=== PATIENT | female | born 1945 | race Caucasian/White ===

== ENCOUNTER 2019-08-18 08:58 | Emergency (ER) | payer OTHER, SELFPAY ==
[2019-08-18 09:11] VITALS: BP 174/97; PULSE 93; RESP 19; TEMP 36.4; O2SAT 100; BMI 25.7
[2019-08-18 09:30] VITALS: BP 175/99; PULSE 84; RESP 16; O2SAT 100
--- NOTE | 2019-08-18 09:32 | DI.RAD.S_ITS ---
PROCEDURE: XR CHEST 1V INDICATIONS: Chest pain TECHNIQUE: One view of the chest was acquired. COMPARISON: None. FINDINGS: Surgical changes and devices: None. Lungs and pleura: Lungs are clear. No pleural effusions or pneumothorax. Mediastinum: Mediastinal contours appear normal. Heart size is normal. Bones and chest wall: No suspicious bony lesions. Overlying soft tissues appear unremarkable. IMPRESSION: Normal for age, source of current chest pain symptoms is not seen. Dictated by: Emilio Gregory M.D. on 08/18/2019 at 10:34 Approved by: Emilio Gregory M.D. on 08/18/2019 at 10:35
[2019-08-18 09:44] LABS: Add Manual Diff / Slide Review NO; Basophils Absolute Auto 0 /uL (0-100); Basophils Percent Auto 0.6 % (0-2); Eosinophils Absolute Auto 0 /uL (0-450); Eosinophils Percent Auto 0.2 % (2-4); Hematocrit 41.3 % (36-46); Hemoglobin 14.3 g/dL (12.0-16.0); Lymphocytes Absolute Auto 1600 /uL (1100-4500); Lymphocytes Percent Auto 25.9 % (25-40); Mean Corpuscular HGB Conc 34.8 % (30-36); Mean Corpuscular Hemoglobin 31.3 PG (26-34); Mean Corpuscular Volume 89.9 fL (80-100); Monocytes Absolute Auto 300 /uL (0-900); Monocytes Percent Auto 4.6 % (3-14); Neutrophils Absolute Auto 4300 /uL (1500-7000); Neutrophils Percent Auto 68.7 % (50-75); Platelet Count 288 X10^3/uL (150-400); Red Blood Cell Count 4.59 X10^6/uL (4.0-5.2); Red Cell Distribution Width 13.3 % (11.6-14.8); White Blood Cell Count 6.3 X10^3/uL (4.5-11.0)
--- NOTE | 2019-08-18 09:56 | ED_ITS ---
HPI - Chest Pain General Chief Complaint: Chest Pain Stated Complaint: chest tightness Time Seen by Provider: 08/18/19 09:36 Source: patient Mode of arrival: Ambulatory Limitations: no limitations History of Present Illness HPI narrative: Patient comes emergency department complaining of chest tightness for the past several days. She states that she has been anxious for a long time, secondary to her daughter traveling to [place] and the [facility] for work. The patient states that every time her daughter's overseas, she 1st for her daughter safety and does not sleep at night. She states that she does not have a history of any cardiac issues. She states her blood pressure does go high when she is anxious, but comes back down to normal when her anxiety dies down. She states she has been checked many times at Dr. Salgado's office for this, and has not as yet been diagnosed with hypertension. Patient denies any recent illnesses. She states that her chest tightness is not associated with any shortness of breath, lightheadedness, or diaphoresis. She has had slight nausea this morning. Patient states she did not really sleep much last night. She states that once her anxiety gets going, it is hard to break the cycle. No other complaints at this time. No decreased exercise tolerance. Related Data Home Medications Medication Instructions Recorded Confirmed multivitamin 1 tab PO DAILY #0 05/02/11 08/18/19 acetaminophen [Tylenol Extra 500 mg PO PRN PRN 08/18/19 08/18/19 Strength] cholecalciferol (vitamin D3) 2,000 unit PO DAILY 08/18/19 08/18/19 [Vitamin D3] Previous Rx's Medication Instructions Recorded lorazepam [Ativan] 1 mg PO TID PRN #14 tab 08/18/19 Allergies Allergy/AdvReac Type Severity Reaction Status Date / Time prochlorperazine Allergy Mild Verified 08/18/19 09:37 [PROCHLORPERAZINE] Review of Systems Constitutional Constitutional: Denies chills, Denies fatigue, Denies fever(s), Denies frequent falls, Denies lethargy and Denies weakness Eyes Eyes: Denies change in vision, Denies eye discharge, Denies irritation and Denies loss of vision ENT Ears, Nose, Mouth, and Throat: Denies change in voice, Denies dizziness, Denies neck pain, Denies sore throat and Denies throat swelling Cardiovascular Cardiovascular: Reports chest pain, Denies irregular heart rhythm, Denies lightheadedness, Denies palpitations, Denies dyspnea, Denies dyspnea on exertion and Denies orthopnea Respiratory Respiratory: Denies cough, Denies dyspnea, Denies dyspnea on exertion and Denies wheezing Gastrointestinal Gastrointestinal: Denies abdominal pain, Denies change in bowel habits, Denies diarrhea, Denies nausea and Denies vomiting Genitourinary Genitourinary: Denies hematuria, Denies flank pain, Denies urinary incontinence and Denies urinary urgency Musculoskeletal Musculoskeletal: Denies back pain, Denies muscle weakness, Denies neck pain, Denies numbness and Denies tingling Integumentary/Breasts Skin/Breast: Denies pruritus, Denies erythema, Denies rash and Denies wounds Neurologic Neurologic: Denies behavioral changes, Denies confusion, Denies dizziness, Denie s frequent falls, Denies loss of vision, Denies numbness, Denies tingling and Denies weakness Psychiatric Psychiatric: Denies anxiety, Denies behavioral changes, Denies confusion, Denies depression, Denies homicidal ideation and Denies suicidal ideation Endocrine Endocrine: Denies fatigue, Denies flushing and Denies palpitations Hematologic/Lymphatic Hematologic/Lymphatic: Denies easy bruising Allergic/Immunologic Allergic/Immunologic: Denies urticaria, Denies throat swelling and Denies wheezing Patient History Medical History Anxiety (Acute) Hyperlipidemia (Chronic 04/02/13) Impaired fasting glucose (01/17/16) Social History Smoking Status: Never smoker alcohol intake frequency: a few times a month Alcohol type: wine Substance Use Type: does not use Exam Initial Vital Signs Initial Vital Signs: Vital Signs Temperature 97.6 F 08/18/19 09:11 Pulse Rate 93 H 08/18/19 09:11 Respiratory Rate 19 08/18/19 09:11 Blood Pressure 174/97 H 08/18/19 09:11 Pulse Oximetry 100 08/18/19 09:11 Const General: cooperative and well developed Nutritional Appearance: well nourished Orientation: alert, awake, oriented x3 and not confused HENOR Head: normocephalic and atraumatic Ears: external ears normal Nose: external nose normal and No nasal discharge Face and sinus: face symmetric and No dry mucous membranes Mouth: oral mucosae normal and moist mucous membranes Teeth and gingiva: dentition normal Eyes General: appearance normal, both eyes and all related structures Eyelids: eyelids normal Conjunctivae: conjunctivae normal Sclera: sclerae normal Pupils: PERRL EOM: EOM intact bilaterally Neck Neck: normal visual inspection, trachea midline, No lymphadenopathy, No midline deformity and No JVD Lymphatic: No lymphedema Chest Chest: normal inspection of the chest Resp Effort & Inspection: normal respiratory effort, able to speak in complete sentences, no respiratory distress and no use of accessory muscles Auscultation: clear to auscultation bilaterally, no rales, no rhonchi and no wheezes Cardio Rate: regular rate Rhythm: regular rhythm Heart Sounds: no click, no gallops, no murmurs and no rubs Pulses: normal peripheral pulses GI Inspection: non-distended Palpation: soft, no hepatosplenomegaly, No guarding, No pulsatile mass and No tender Back/Spine/Pelvis Back: No CVA tenderness Cervical Spine: cervical ROM normal and No pain with cervical ROM Thoracic/Lumbar Spine: thoracic and lumbar spine normal to inspection Skin General: no rashes or lesions noted, No jaundice and No petechiae Neuro General: alert, oriented x3, gait normal and no focal motor deficits Speech: speech normal Extrem General: full ROM, no clubbing, cyanosis or edema, no pedal edema and no calf tenderness Psych Appearance: well kempt Mental Status: mental status grossly normal Attitude: cooperative Thought Content: normal and suicidality Judgment: judgment good Course Course Course Narrative: Patient was treated symptomatically with Ativan and worked up with EKG and cardiac lab panel. Patient was found to be feeling much better after treatment with Ativan, and stated that her chest tightness is gone and her anxiety level was ?way down?. Her workup was unremarkable. Given that the patient had been having symptoms for days on end, without change in the nature or intensity of symptoms, I did not feel that a repeat troponin was indicated at this time. I have advised the patient that I will give her a prescription for Ativan for home. However, is very important that she follows up with the primary care physician to determine about her long-term plan for her anxiety. Patient and are agreeable, and can drive patient home. Orders Ordered: Discontinued Medications Aspirin (Aspirin Chew) 324 mg PO NOW ONE Stop: 08/18/19 09:33 Last Admin: 08/18/19 10:04 Dose: Not Given Documented by: REYNALDO Sodium Chloride (Normal Saline 0.9%) 1,000 mls @ 150 mls/hr IV CONT BLANKA Lorazepam (Ativan) 1 mg IV NOW ONE Stop: 08/18/19 09:51 Last Admin: 08/18/19 09:58 Dose: 1 mg Documented by: REYNALDO Vital Signs Vital signs: Vital Signs - 8 hr 08/18/19 09:11 Temperature 97.6 F Pulse Rate 93 H Respiratory Rate 19 Blood Pressure 174/97 H Pulse Oximetry 100 MDM - Chest Pain Medical Records Data Attestation: I reviewed the patient's medical records. Lab Data Attestation: I reviewed the patient's lab results. Result diagrams: 08/18/19 09:22 08/18/19 09:22 Labs: Lab Results 08/18/19 08/18/19 Range/Units 09:22 09:22 WBC 6.3 (4.5-11.0) X10^3/uL RBC 4.59 (4.0-5.2) X10^6/uL Hgb 14.3 (12.0-16.0) g/dL Hct 41.3 (36-46) % MCV 89.9 (80-100) fL MCH 31.3 (26-34) PG MCHC 34.8 (30-36) % RDW 13.3 (11.6-14.8) % Plt Count 288 (150-400) X10^3/uL Neut % (Auto) 68.7 (50-75) % Lymph % (Auto) 25.9 (25-40) % [place] % (Auto) 4.6 (3-14) % Eos % (Auto) 0.2 L (2-4) % Baso % (Auto) 0.6 (0-2) % Neut # (Auto) 4300 (9033-0438) /uL Lymph # (Auto) 1600 (7229-1169) /uL [place] # (Auto) 300 (0-900) /uL Eos # (Auto) 0 (0-450) /uL Baso # (Auto) 0 (0-100) /uL Sodium 133 L (137-145) mmol/L Potassium 4.2 (3.4-5.1) mmol/L Chloride 100 (98-107) mmol/L Carbon Dioxide 25 (22-32) mmol/L BUN 13 (7-17) mg/dL Creatinine 0.80 (0.52-1.04) mg/dL Estimated GFR > 60.0 (>60) mL/min BUN/Creatinine Ratio 16.3 (6-22) Glucose 115 H (80-110) mg/dL Calcium 10.1 (8.4-10.2) mg/dL Total Bilirubin 1.1 (0.2-1.3) mg/dL AST 41 H (14-36) IU/L ALT 20 (<35) IU/L Alkaline Phosphatase 78 (38-126) U/L Total Creatine Kinase 64 (30-135) U/L CK-MB (CK-2) TNP CK-MB (CK-2) Rel Index TNP Troponin I < 0.012 (0.01-0.034) ng/mL Total Protein 7.5 (6.3-8.2) g/dL Albumin 4.5 (3.5-5.0) g/dL Globulin 3.0 (1.7-4.1) g/dL Albumin/Globulin Ratio 1.5 (1.0-2.8) Lipase 108 (23-300) U/L Imaging Data Chest x-ray: Radiologist's impression: PROCEDURE: XR CHEST 1V INDICATIONS: Chest pain TECHNIQUE: One view of the chest was acquired. COMPARISON: None. FINDINGS: Surgical changes and devices: None. Lungs and pleura: Lungs are clear. No pleural effusions or pneumothorax. Mediastinum: Mediastinal contours appear normal. Heart size is normal. Bones and chest wall: No suspicious bony lesions. Overlying soft tissues appear unremarkable. IMPRESSION: Normal for age, source of current chest pain symptoms is not seen. Dictated by: Emilio Gregory M.D. on 08/18/2019 at 10:34 Approved by: Emilio Gregory M.D. on 08/18/2019 at 10:35 ECG Data Attestation: I personally reviewed and interpreted this ECG as follows: (See below) Interpretation: Twelve lead EKG performed August 18, 2019 at 9:11 a.m., as follows: Regular ventricular rhythm with a rate of 90 beats per min MO interval is 128 millisecond QRS duration 102 millisecond QTC interval 408 millisecond No ectopy No significant ST T wave changes Interpretation: Normal sinus rhythm; no signs of acute ischemia; normal EKG as interpreted by ED. Discharge Plan Departure Patient Disposition: Home Clinical Impression: Anxiety Chest pain Qualifiers: Chest pain type: unspecified Qualified Code(s): R07.9 - Chest pain, unspecified Discharge Date/Time: 08/18/19 11:13 Instructions: DI for Anxiety -- Adult Activity Restrictions/Additional Instructions: Your labs all look good, does your EKG there is no evidence a heart attack or other emergent condition. Please follow up with your doctor, or the doctors l isted below, to determine the best long-term treatment of your anxiety. Prescriptions: New lorazepam [Ativan] 1 mg tablet 1 mg PO TID PRN (Reason: anxiety) Qty: 14 RF: 0 No Action multivitamin Tablet 1 tab PO DAILY Qty: 0 RF: 0 acetaminophen [Tylenol Extra Strength] 500 mg Tablet 500 mg PO PRN PRN (Reason: PAIN) RF: 0 cholecalciferol (vitamin D3) [Vitamin D3] 2,000 unit Tablet 2,000 unit PO DAILY RF: 0 Referrals: Luis Salgado MD [Primary Care Provider] - Kala Diaz MD [Physician] - Eli Fernandez MD [Physician] - Dottie Andrew DO [Physician] -
[2019-08-18 09:58] LABS: Alanine Aminotransferase 20 IU/L (<35); Albumin 4.5 g/dL (3.5-5.0); Albumin Globulin Ratio 1.5 (1.0-2.8); Alkaline Phosphatase 78 U/L (38-126); Aspartate Aminotransferase 41 IU/L (14-36); BUN Creatinine Ratio 16.3 (6-22); Bilirubin Total 1.1 mg/dL (0.2-1.3); Blood Urea Nitrogen 13 mg/dL (7-17); Calcium 10.1 mg/dL (8.4-10.2); Carbon Dioxide 25 mmol/L (22-32); Chloride 100 mmol/L (98-107); Creatine Kinase 64 U/L (30-135); Estimated Glomerular Filt Rate > 60.0 mL/min (>60); Glucose 115 mg/dL (80-110); HEMOLYSIS 99 (0-50); Lipase 108 U/L (23-300); Potassium 4.2 mmol/L (3.4-5.1); Sodium 133 mmol/L (137-145); Total Protein 7.5 g/dL (6.3-8.2)
[2019-08-18] MEDS: LORazepam 2 MG/ML INJ 1 MG IV (09:58)
[2019-08-18 10:08] LABS: Troponin I < 0.012 ng/mL (0.01-0.034)
[2019-08-18 11:13] VITALS: BP 146/65; PULSE 86; RESP 16; O2SAT 100
== END 2019-08-18 11:13 | disposition home or self-care (01) ==
PROVIDERS: Emergency Provider Emergency Medicine; Family Provider Family Medicine; PCP Family Medicine
DX: F41.9 Anxiety disorder, unspecified (principal); R07.9 Chest pain, unspecified; E78.2 Mixed hyperlipidemia
CPT/HCPCS: 36415; 71045; 80053; 82550; 83690; 84484; 85025; 93005; 96374; 99282; 99285; J2060

== ENCOUNTER → 2020-10-27 16:59 | Outpatient (CLI) | payer MEDICARE, SELFPAY ==
[2020-10-27] MEDS: COVID-19 VACC #1, MRNA(MOD) 100 MCG/0.5 ML VIAL IM (17:05)
== END ==
PROVIDERS: Family Provider Family Medicine; PCP Family Medicine; Visit Provider Internal Medicine
DX: Z23 Encounter for immunization (principal)
CPT/HCPCS: 0011A; 91301

== ENCOUNTER → 2020-11-25 08:47 | Outpatient (CLI) | payer MEDICARE, SELFPAY ==
[2020-11-25] MEDS: COVID-19 VACC #2, MRNA(MOD) 100 MCG/0.5 ML VIAL IM (08:53)
== END ==
PROVIDERS: Family Provider Family Medicine; PCP Family Medicine; Visit Provider Internal Medicine
DX: Z23 Encounter for immunization (principal)
CPT/HCPCS: 0012A; 91301

== ENCOUNTER 2022-09-15 08:04 | Emergency (ER) | payer OTHER, SELFPAY ==
[2022-09-15 08:05] VITALS: BP 171/86; PULSE 95; RESP 22; TEMP 36.6; O2SAT 100
--- NOTE | 2022-09-15 08:32 | ED.ANXIETY ---
HPI - Anxiety General Chief Complaint: Anxiety Stated Complaint: Panic attack per patient Time Seen by Provider: 09/15/22 08:31 Source: patient Mode of arrival: Ambulatory Limitations: no limitations History of Present Illness HPI narrative: This is a 77-year-old female who comes with complaint of panic attack. Patient states she is been having them intermittently for some time, she states it has been happening with a little bit increasing frequency because she has a neighbor that maybe moving back into the house who they have had very negative interactions with in the past. Patient states she has a bottle lorazepam they were 1 mg tablets that she would quarter that she received and 2019. She will take a 0.25 mg of this and it is usually helpful. She states sometimes just looking at the bottle is helpful. She states she will typically wake up at about 130 in the morning, she will feel very anxious she will have this sense of doom that something bad is going to happen, she feels a little bit tight in her chest nauseated and sometimes symptoms will pass on their own and sometimes she will take the lorazepam. She has been told by multiple people to follow up with a counselor, she states she has multiple names. She is talked to Dr. Salgado about this her primary care but had not followed up to get a refill. She is not on any daily medications. She denies syncope, no diaphoresis, no shortness of breath, she has nausea but no vomiting with episodes happen. She denies diarrhea constipation, no dysuria urgency or frequency. No swelling in her extremities. She was seen here in 2019 had cardiac enzymes, EKG which were negative she has not followed up for any additional cardiac testing. She denies major surgeries. She is reported allergy to prochlorperazine. No tobacco, occasional alcohol, no illicit. She is accompanied by her today. Related Data Home Medications Medication Instructions Recorded Confirmed multivitamin 1 tab PO DAILY ##0 05/02/11 08/18/19 acetaminophen 500 mg tablet 500 mg PO PRN PRN PAIN 08/18/19 08/18/19 (Tylenol Extra Strength) cholecalciferol (vitamin D3) 50 2,000 unit PO DAILY 08/18/19 08/18/19 mcg (2,000 unit) tablet (Vitamin D3) Previous Rx's Medication Instructions Recorded lorazepam 1 mg tablet (Ativan) 1 mg PO TID PRN anxiety #14 tabs 08/18/19 lorazepam 1 mg tablet 0.25 mg PO DAILY PRN anxiety #5 09/15/22 tabs Allergies Allergy/AdvReac Type Severity Reaction Status Date / Time prochlorperazine Allergy Mild Verified 08/18/19 09:37 [PROCHLORPERAZINE] Review of Systems Review of Systems ROS Unobtainable: All systems reviewed & are unremarkable except as noted in HPI and below Patient History Medical History (Updated 09/15/22 @ 08:50 by Lizette Grimaldo DO) Anxiety Hyperlipidemia (04/02/13) Impaired fasting glucose (01/17/16) Surgical History History of third molar tooth extraction Social History Smoking Status: Never smoker Smoking Status: Never smoker alcohol intake frequency: a few times a month Alcohol type: wine Substance Use Type: does not use Exam Narrative Exam Narrative: GENERAL: Alert and oriented x three, female in mild distress HEENT: Head normocephalic, atraumatic, EOMI, pupils reactive, face symmetric, moist mucous membranes NECK: Supple, full range of motion CARDIOVASCULAR: Regular rate and rhythm without murmurs, rubs or gallops. RESPIRATORY: Breath sounds equal bilaterally, no wheezes rales or rhonchi. ABDOMEN: Soft, nontender. Normoactive bowel sounds all 4 quadrants. No guarding or rebound, rigidity, no mass : No CVA tenderness EXTREMITIES: Normal range of motion, no clubbing or edema. Neurovascularly intact NEUROLOGICAL: Cranial nerves II through XII grossly intact. Moving all extremities SKIN: Warm, dry, no petechiae, no rashes or lesions. PSYCH: anxiety, no thoughts of self harm. Initial Vital Signs Initial Vital Signs: Vital Signs Temperature 98 F 09/15/22 08:05 Pulse Rate 95 H 09/15/22 08:05 Respiratory Rate 22 09/15/22 08:05 Blood Pressure 171/86 H 09/15/22 08:05 Pulse Oximetry 100 09/15/22 08:05 Oxygen Delivery Method 09/15/22 08:05 Course Orders Ordered: Discontinued Medications Lorazepam (Lorazepam 0.5 Mg Tablet) 0.25 mg PO NOW ONE Stop: 09/15/22 08:44 Last Admin: 09/15/22 09:02 Dose: 0.25 mg Documented By: CATALINO Vital Signs Vital signs: Vital Signs - 8 hr 09/15/22 08:05 Temperature 98 F Pulse Rate 95 H Respiratory Rate 22 Blood Pressure 171/86 H Pulse Oximetry 100 Oxygen Delivery Method Room Air MDM - Anxiety MDM Narrative Medical decision making narrative: This is a 77-year-old female with no known medical issues reported, patient has sounds like possible panic attack but I feel patient should have cardiac workup with labs, EKG and chest x-ray but patient very politely defers. She did bring her bottle of medication with her states it took about 2 years to go through 14 tablets. Will give a dose of 0.25 mg lorazepam, prescription for 5 tablets and discussed with patient she needs to follow up with her primary care for further workup and evaluation as well as counselor if no other causes are found. Patient and I reviewed return precautions. Discharge Plan Departure Patient Disposition: Home Clinical Impression: Anxiety Activity Restrictions/Additional Instructions: Follow up with Dr. Salgado for recheck and workup for your anxious feelings. I would recommend you have cardiac workup today to rule out any other causes of your anxious symptoms. You can take a quarter tablet of lorazepam once daily as needed. This medication can make you sleepy do not drive, performed hazardous activities or make any major decisions while taking. Prescription sent Please return for new or worsening symptoms, new chest pain, shortness of breath, passing out, sweatiness, persistent vomiting, new swelling in her extremities or other new or concerning changes. Prescriptions: New lorazepam 1 mg tablet 0.25 mg PO DAILY PRN (Reason: anxiety) Qty: 5 0RF No Action multivitamin Tablet 1 tab PO DAILY Qty: 0 acetaminophen [Tylenol Extra Strength] 500 mg Tablet 500 mg PO PRN PRN (Reason: PAIN) cholecalciferol (vitamin D3) [Vitamin D3] 2,000 unit Tablet 2,000 unit PO DAILY lorazepam [Ativan] 1 mg tablet 1 mg PO TID PRN (Reason: anxiety) Qty: 14 0RF Referrals: Luis Salgado MD [Primary Care Provider] - Visit Report Forms: Patient Portal/API
[2022-09-15] MEDS: LORazepam 0.5 MG TABLET 0.25 MG PO (09:02)
[2022-09-15 09:12] VITALS: BP 181/94; PULSE 85; RESP 18; TEMP 37.6; O2SAT 99
== END 2022-09-15 09:12 | disposition home or self-care (01) ==
PROVIDERS: Emergency Provider Emergency Medicine; Family Provider Family Medicine; PCP Family Medicine
DX: F41.9 Anxiety disorder, unspecified (principal)
CPT/HCPCS: 99283

== ENCOUNTER 2023-10-19 03:32 | Emergency (ER) | payer OTHER, SELFPAY ==
[2023-10-19 03:44] VITALS: BP 166/81; PULSE 104; O2SAT 98
[2023-10-19 03:48] VITALS: BP 166/81; PULSE 105; RESP 18; TEMP 37.3; O2SAT 97; BMI 23.9
--- NOTE | 2023-10-19 03:48 | DI.RAD.S_ITS ---
PROCEDURE: XR CHEST 1V INDICATIONS: chest pain/anxiety TECHNIQUE: One view of the chest was acquired. COMPARISON: [facility], CR, XR CHEST 1V, 08/18/2019, 9:55. FINDINGS: Surgical changes and devices: None. Lungs and pleura: Lungs are clear. No pleural effusions or pneumothorax. Mediastinum: Mediastinal contours appear normal. Heart size is normal. Bones and chest wall: No suspicious bony lesions. Overlying soft tissues appear unremarkable. IMPRESSION: No acute cardiopulmonary abnormality is seen. This report is concordant with the overnight preliminary interpretation. Dictated by: Manjinder Johnson M.D. on 10/19/2023 at 8:04 Approved by: Manjinder Johnson M.D. on 10/19/2023 at 8:05
--- NOTE | 2023-10-19 03:55 | ED.ANXIETY ---
HPI - Anxiety General Chief Complaint: Anxiety Stated Complaint: shakey, feels bad not sure what is going on Time Seen by Provider: 10/19/23 03:33 History of Present Illness HPI narrative: 78-year-old female presents by private vehicle from home for shakiness, malaise, anxiety. Patient has had ongoing issues with anxiety for the last several weeks. She saw her primary care physician earlier this week, who prescribed Celexa and a very small dose of as needed Ativan. Patient states she took a single pill of the Celexa, but ?it made me very sick? and she does not want to take this again. Patient states that she feels shaky, she can not sleep, and generally unwell. He reports single episode of central chest pain earlier this morning, which subsequently resolved, and she is currently pain-free. Related Data Home Medications Medication Instructions Recorded Confirmed multivitamin 1 tab PO DAILY ##0 05/02/11 10/17/23 acetaminophen 500 mg tablet 500 mg PO PRN PRN PAIN 08/18/19 10/17/23 (Tylenol Extra Strength) cholecalciferol (vitamin D3) 50 2,000 unit PO DAILY 08/18/19 10/17/23 mcg (2,000 unit) tablet (Vitamin D3) Previous Rx's Medication Instructions Recorded citalopram 10 mg tablet (Celexa) 5 mg (1/2 x 10 mg) PO DAILY #15 10/17/23 tabs lorazepam 0.5 mg tablet 0.25 mg (1/2 x 0.5 mg) PO DAILY 10/17/23 PRN anxiety #10 tabs Allergies Allergy/AdvReac Type Severity Reaction Status Date / Time prochlorperazine Allergy Mild Verified 10/17/23 09:28 [PROCHLORPERAZINE] Review of Systems Review of Systems Narrative: See HPI Patient History Medical History Impaired fasting glucose (01/17/16) Hyperlipidemia (04/02/13) Anxiety Surgical History History of third molar tooth extraction Social History Smoking Status: Never smoker Smoking Status: Never smoker alcohol intake frequency: a few times a month Alcohol type: wine Substance Use Type: does not use Exam Initial Vital Signs Initial Vital Signs: Vital Signs Pulse Rate 104 H 10/19/23 03:44 Blood Pressure 166/81 H 10/19/23 03:44 Pulse Oximetry 98 10/19/23 03:44 Const: Awake, alert, anxious, tremulous Cardiac: regular rate, regular rhythm RESP: unlabored, clear bilaterally, no wheezing GI: Atraumatic, soft, nontender, nondistended, no rebound, no guarding MSK: Atraumatic, full range of motion, pulses equal Skin: Warm, Dry, intact, no rashes Neuro: AO x3, CN II-XII grossly intact, moves all extremities Psych: Anxious affect, not suicidal, not homicidal Course Orders Ordered: Discontinued Medications Droperidol (Droperidol 5 Mg/2 Ml Vial) 2.5 mg IV NOW ONE Stop: 10/19/23 03:48 Last Admin: 10/19/23 03:56 Dose: 2.5 mg Documented By: EDOUARD Sodium Chloride (Normal Saline 0.9%) 1,000 mls @ 1,000 mls/hr IV BOLUS ONE Stop: 10/19/23 04:46 Last Infusion: 10/19/23 04:43 Dose: Infused Documented By: Admin: 10/19/23 03:56 Dose: 1,000 mls/hr Documented By: EDOUARD Lorazepam (Lorazepam 0.5 Mg/0.25 Ml Syringe) 1 mg IV NOW ONE Stop: 10/19/23 05:06 Last Admin: 10/19/23 05:35 Dose: Not Given Documented By: LISA Lorazepam (Lorazepam 0.5 Mg/0.25 Ml Syringe) 1 mg IV NOW ONE Stop: 10/19/23 05:10 Last Admin: 10/19/23 05:22 Dose: Not Given Documented By: ELZA Lorazepam (Lorazepam 2 Mg/Ml Inj) 1 mg IV NOW ONE Stop: 10/19/23 05:16 Last Admin: 10/19/23 05:24 Dose: 1 mg Documented By: LISA Vital Signs Vital signs: Vital Signs - 8 hr 10/19/23 03:44 10/19/23 03:44 10/19/23 03:48 Temperature 99.1 F Pulse Rate 104 H 105 H Respiratory Rate 18 Blood Pressure 166/81 H 166/81 H Pulse Oximetry 98 97 Oxygen Delivery Method Room Air 10/19/23 04:00 10/19/23 04:30 10/19/23 04:30 Temperature Pulse Rate 89 75 Respiratory Rate 16 22 Blood Pressure 163/75 H Pulse Oximetry 97 98 Oxygen Delivery Method 10/19/23 05:00 10/19/23 05:00 Temperature Pulse Rate 75 Respiratory Rate 18 Blood Pressure 177/84 H Pulse Oximetry 99 Oxygen Delivery Method MDM - Anxiety Differential Diagnosis Differential diagnosis: Likely hyperventilation, panic disorder and acute anxiety Lab Data 10/19/23 03:54 10/19/23 03:54 Labs: Lab Results 10/19/23 10/19/23 Range/Units 03:54 04:55 WBC 5.6 (4.5-11.0) X10^3/uL RBC 4.36 (4.0-5.2) X10^6/uL Hgb 13.8 (12.0-16.0) g/dL Hct 39.6 (36-46) % MCV 90.9 (80-100) fL MCH 31.8 (26-34) PG MCHC 34.9 (30-36) % RDW 13.3 (11.6-14.8) % Plt Count 292 (150-400) X10^3/uL Neut % (Auto) 54.0 (50-75) % Lymph % (Auto) 37.2 (25-40) % [place] % (Auto) 7.1 (3-14) % Eos % (Auto) 1.0 L (2-4) % Baso % (Auto) 0.7 (0-2) % Neut # (Auto) 3000 (0223-2348) /uL Lymph # (Auto) 2100 (3127-8943) /uL [place] # (Auto) 400 (0-900) /uL Eos # (Auto) 100 (0-450) /uL Baso # (Auto) 0 (0-100) /uL Sodium 134 L (137-145) mmol/L Potassium 3.8 (3.4-5.1) mmol/L Chloride 102 (98-107) mmol/L Carbon Dioxide 24 (22-32) mmol/L BUN 14 (7-17) mg/dL Creatinine 0.87 (0.52-1.04) mg/dL Estimated GFR > 60 (>60) mL/min BUN/Creatinine Ratio 16.1 (6-22) Glucose 116 H (80-110) mg/dL Calcium 9.6 (8.4-10.2) mg/dL Total Bilirubin 0.9 (0.2-1.3) mg/dL AST 20 (14-36) IU/L ALT 16 (<35) IU/L Alkaline Phosphatase 78 (38-126) U/L Total Creatine Kinase 56 (30-135) U/L Troponin I < 0.012 (0.01-0.034) ng/mL Total Protein 7.1 (6.3-8.2) g/dL Albumin 4.2 (3.5-5.0) g/dL Globulin 2.9 (1.7-4.1) g/dL Albumin/Globulin Ratio 1.4 (1.0-2.8) TSH 3.01 (0.47-4.68) uIU/mL Urine RBC None seen (0-5/HPF) Urine WBC None seen (0-5/HPF) Ur Squamous Epith Cells 0-1 /hpf (0-5/HPF) Urine Bacteria None seen (None) Ur Culture Indicated? Cult not indicated Vol Urine Centrifuged 10ml (spun) Urine Dip Bedside Urine Glucose Negative Bedside Urine Bilirubin - Negative Bedside Urine Ketone - Negative Urine Specific [place] 1.010 Bedside Urine Occult Blood + Bedside Urine pH 7.0 Bedside Urine Protein - Negative Bedside Urine Urobilinogen - Negative Bedside Urine Nitrite - Negative Bedside Urine Leukocytes - Negative Esterase MDM Narrative Medical decision making narrative: Patient presenting with worsening anxiety over the last several days. Saw primary care physician 1 day prior for anxiety and tinnitus. She was supposed to try Celexa, however she states that a single tablet made her ?too sick?, and the Ativan tends to work better for her anxiety. Patient's primary concern is that she can not sleep due to her anxiety. Laboratory work is reviewed, no acute abnormalities identified. Chest x-ray normal, troponin undetectable. Patient given droperidol and Ativan with improvement in anxiety. I counseled the patient that taking a daily pill for her anxiety is much better and we will overall have a better effect on her anxiety then taking Ativan. I encouraged the patient to give the Celexa a chance, if not then she may talk to her primary care physician for possible medication changes Discharge Plan Departure Patient Disposition: Home Clinical Impression: Anxiety Instructions: Anxiety and Panic Attacks (Alternative Therapy), DI for Anxiety -- Adult Activity Restrictions/Additional Instructions: Your EKG, chest x-ray, laboratory work today was all normal. I highly recommend that you continue to try the citalopram as it can take up to 6 weeks for the medication to take maximum effect, and it is much safer than taking benzodiazepines. Prescriptions: No Action multivitamin Tablet 1 tab PO DAILY Qty: 0 citalopram [Celexa] 10 mg tablet 5 mg PO DAILY Qty: 15 1RF Rx Instructions: Take 1/2 tablet daily lorazepam 0.5 mg tablet 0.25 mg PO DAILY PRN (Reason: anxiety) Qty: 10 0RF acetaminophen [Tylenol Extra Strength] 500 mg Tablet 500 mg PO PRN PRN (Reason: PAIN) cholecalciferol (vitamin D3) [Vitamin D3] 2,000 unit Tablet 2,000 unit PO DAILY Referrals: Luis Salgado MD [Primary Care Provider] - Stand Alone Forms: Patient Portal/API
[2023-10-19] MEDS: SODIUM CHLORIDE 0.9% 1,000 ML 1000 ML IV (03:56)
[2023-10-19] MEDS: DROPERIDOL 5 MG/2 ML VIAL 2.5 MG IV (03:56)
[2023-10-19 04:00] VITALS: PULSE 89; RESP 16; O2SAT 97
[2023-10-19 04:03] LABS: Add Manual Diff / Slide Review NO; Basophils Absolute Auto 0 /uL (0-100); Basophils Percent Auto 0.7 % (0-2); Eosinophils Absolute Auto 100 /uL (0-450); Hematocrit 39.6 % (36-46); Hemoglobin 13.8 g/dL (12.0-16.0); Lymphocytes Absolute Auto 2100 /uL (1100-4500); Lymphocytes Percent Auto 37.2 % (25-40); Mean Corpuscular HGB Conc 34.9 % (30-36); Mean Corpuscular Hemoglobin 31.8 PG (26-34); Mean Corpuscular Volume 90.9 fL (80-100); Monocytes Absolute Auto 400 /uL (0-900); Monocytes Percent Auto 7.1 % (3-14); Neutrophils Absolute Auto 3000 /uL (1500-7000); Platelet Count 292 X10^3/uL (150-400); Red Blood Cell Count 4.36 X10^6/uL (4.0-5.2); Red Cell Distribution Width 13.3 % (11.6-14.8); White Blood Cell Count 5.6 X10^3/uL (4.5-11.0)
[2023-10-19 04:16] LABS: Alanine Aminotransferase 16 IU/L (<35); Albumin 4.2 g/dL (3.5-5.0); Albumin Globulin Ratio 1.4 (1.0-2.8); Alkaline Phosphatase 78 U/L (38-126); Aspartate Aminotransferase 20 IU/L (14-36); BUN Creatinine Ratio 16.1 (6-22); Bilirubin Total 0.9 mg/dL (0.2-1.3); Blood Urea Nitrogen 14 mg/dL (7-17); Calcium 9.6 mg/dL (8.4-10.2); Carbon Dioxide 24 mmol/L (22-32); Chloride 102 mmol/L (98-107); Creatine Kinase 56 U/L (30-135); Estimated Glomerular Filt Rate > 60 mL/min (>60); Globulin 2.9 g/dL (1.7-4.1); Glucose 116 mg/dL (80-110); HEMOLYSIS < 15 (0-50); Potassium 3.8 mmol/L (3.4-5.1); Sodium 134 mmol/L (137-145); Total Protein 7.1 g/dL (6.3-8.2)
[2023-10-19 04:27] LABS: Troponin I < 0.012 ng/mL (0.01-0.034)
[2023-10-19 04:30] VITALS: BP 163/75; PULSE 75; RESP 22; O2SAT 98
--- NOTE | 2023-10-19 04:32 | PC.NURSE ---
Pt states she is not feeling like she needs to urinate yet. Pt also states she does not have any change to her anxiety because she doesn't know whats happening and i'm worried about it. Pt is laying in bed, vital signs stable, equal rise and fall of chest, no signs of respiratory distress.
[2023-10-19 04:53] LABS: Thyroid Stimulating Hormone 3.01 uIU/mL (0.47-4.68)
[2023-10-19 05:00] VITALS: BP 177/84; PULSE 75; RESP 18; O2SAT 99
[2023-10-19 05:16] LABS: Urine Volume 10mL (spun)
[2023-10-19] MEDS: LORazepam 2 MG/ML INJ 1 MG IV (05:24)
[2023-10-19 05:28] LABS: Bacteria Urine None Seen; Culture Indicated Urine Cult Not Indicated; RBC Urine None Seen (0-5/HPF); Squamous Epithelial Cell Urine 0-1 /HPF (0-5/HPF); WBC Urine None Seen (0-5/HPF)
== END 2023-10-19 05:55 | disposition home or self-care (01) ==
PROVIDERS: Emergency Provider Emergency Medicine; Family Provider Family Medicine; PCP Family Medicine
DX: F41.9 Anxiety disorder, unspecified (principal); R53.81 Other malaise
CPT/HCPCS: 36415; 71045; 80053; 81003; 81015; 82550; 84443; 84484; 85025; 93005; 96374; 96375; 99284; J1790; J2060

== ENCOUNTER 2024-01-18 01:33 | Emergency (ER) | payer OTHER, SELFPAY ==
--- NOTE | 2024-01-18 01:39 | ED.ABDPAIN ---
HPI - Abdominal Pain General Chief Complaint: Nausea/Vomiting/Diarrhea Stated Complaint: food poisoning Time Seen by Provider: 01/18/24 01:38 History of Present Illness HPI narrative: Patient is a 78-year-old female history of generalized anxiety presenting today with nausea vomiting and diarrhea. She reports that she was feeling well throughout the day she and her both had pizza and she suddenly started vomiting and having diarrhea. She was briefly short of breath but not complaining of some breath chest pain or palpitations now. She did out no dizziness or lightheadedness. She denies any sort of pain. Initially she was tachycardic with blood pressure on systolic of 95. No he went to have a sepsis or bloody stool. She reports that vomiting diarrhea times she feels like she is covered in it. Related Data Home Medications Medication Instructions Recorded Confirmed multivitamin 1 tab PO DAILY ##0 05/02/11 10/17/23 acetaminophen 500 mg tablet 500 mg PO PRN PRN PAIN 08/18/19 10/17/23 (Tylenol Extra Strength) cholecalciferol (vitamin D3) 50 2,000 unit PO DAILY 08/18/19 10/17/23 mcg (2,000 unit) tablet (Vitamin D3) Previous Rx's Medication Instructions Recorded citalopram 10 mg tablet (Celexa) 5 mg (1/2 x 10 mg) PO DAILY #15 10/17/23 tabs lorazepam 0.5 mg tablet 0.25 mg (1/2 x 0.5 mg) PO DAILY 10/17/23 PRN anxiety #10 tabs ondansetron 4 mg disintegrating 4 mg PO Q8H PRN nausea and 01/18/24 tablet vomiting #10 tabs Allergies Allergy/AdvReac Type Severity Reaction Status Date / Time prochlorperazine Allergy Mild Verified 10/17/23 09:28 [PROCHLORPERAZINE] Patient History Medical History (Updated 01/18/24 @ 02:10 by Tessa Pineda DO) Impaired fasting glucose (01/17/16) Hyperlipidemia (04/02/13) Anxiety Surgical History History of third molar tooth extraction Social History Smoking Status: Never smoker Smoking Status: Never smoker alcohol intake frequency: a few times a month Alcohol type: wine Substance Use Type: does not use Exam Initial Vital Signs Initial Vital Signs: Vital Signs Temperature 98.2 F 01/18/24 01:48 Pulse Rate 90 01/18/24 01:48 Respiratory Rate 16 01/18/24 01:48 Blood Pressure 117/69 01/18/24 01:48 Pulse Oximetry 97 01/18/24 01:48 Oxygen Delivery Method Room Air 01/18/24 01:48 GENERAL: Alert 78-year-old female HEENT: Head atraumatic,EOMI, pupils reactive, face symmetric, moist mucous membranes CARDIOVASCULAR: Regular rate and rhythm without murmurs, rubs or gallops. RESPIRATORY: Breath sounds equal bilaterally, no wheezes rales or rhonchi. ABDOMEN: Soft, nontender. Normoactive bowel sounds all 4 quadrants. No guarding or rebound. EXTREMITIES: Normal range of motion, no clubbing or edema. Neurovascularly intact NEUROLOGICAL: Alert and oriented x4.Normal gait and speech. SKIN: Warm, dry, no laceration, no petechiae, no rashes or lesions. Course Orders Ordered: ED Orders 01/18/24 01:45 Complete Blood Count AUTO DIFF Stat Comprehensive Metabolic Panel Stat Lipase Stat Discontinued Medications Hydroxyzine HCl (Hydroxyzine Hcl 25 Mg Tablet) 25 mg PO NOW ONE Stop: 01/18/24 02:07 Last Admin: 01/18/24 02:24 Dose: 25 mg Documented By: JONI Sodium Chloride (Normal Saline 0.9%) 1,000 mls @ 1,000 mls/hr IV BOLUS ONE Stop: 01/18/24 02:37 Last Infusion: 01/18/24 02:32 Dose: Infused Documented By: Admin: 01/18/24 01:47 Dose: 1,000 mls/hr Documented By: JONI Ondansetron HCl (Ondansetron 4 Mg/2 Ml Inj) 4 mg IV NOW ONE Stop: 01/18/24 01:39 Last Admin: 01/18/24 01:42 Dose: 4 mg Documented By: JONI Ondansetron HCl (Ondansetron 4 Mg Odt Prepack) 1 bottle MISC NOW ONE Stop: 01/18/24 02:11 Last Admin: 01/18/24 02:41 Dose: 1 bottle Documented By: JONI Vital Signs Vital signs: Vital Signs - 8 hr 01/18/24 01:48 Temperature 98.2 F Pulse Rate 90 Respiratory Rate 16 Blood Pressure 117/69 Pulse Oximetry 97 Oxygen Delivery Method Room Air MDM - Abdominal Pain Lab Data 01/18/24 01:45 01/18/24 01:45 Labs: Lab Results 01/18/24 Range/Units 01:45 WBC 17.7 H (4.5-11.0) X10^3/uL RBC 4.51 (4.0-5.2) X10^6/uL Hgb 13.8 (12.0-16.0) g/dL Hct 41.2 (36-46) % MCV 91.5 (80-100) fL MCH 30.6 (26-34) PG MCHC 33.4 (30-36) % RDW 13.0 (11.6-14.8) % Plt Count 302 (150-400) X10^3/uL Neut % (Auto) 77.6 H (50-75) % Lymph % (Auto) 13.3 L (25-40) % [place] % (Auto) 7.9 (3-14) % Eos % (Auto) 0.9 L (2-4) % Baso % (Auto) 0.3 (0-2) % Neut # (Auto) 52160 H (4090-1648) /uL Lymph # (Auto) 2300 (1699-6141) /uL [place] # (Auto) 1400 H (0-900) /uL Eos # (Auto) 200 (0-450) /uL Baso # (Auto) 100 (0-100) /uL Sodium 138 (137-145) mmol/L Potassium 3.7 (3.4-5.1) mmol/L Chloride 105 (98-107) mmol/L Carbon Dioxide 21 L (22-32) mmol/L BUN 20 H (7-17) mg/dL Creatinine 0.92 (0.52-1.04) mg/dL Estimated GFR > 60 (>60) mL/min BUN/Creatinine Ratio 21.7 (6-22) Glucose 171 H (80-110) mg/dL Calcium 9.5 (8.4-10.2) mg/dL Total Bilirubin 1.0 (0.2-1.3) mg/dL AST 21 (14-36) IU/L ALT 20 (<35) IU/L Alkaline Phosphatase 90 (38-126) U/L Total Protein 6.7 (6.3-8.2) g/dL Albumin 4.1 (3.5-5.0) g/dL Globulin 2.6 (1.7-4.1) g/dL Albumin/Globulin Ratio 1.6 (1.0-2.8) Lipase 118 (23-300) U/L MDM Narrative Medical decision making narrative: Patient is 70-year-old female history of anxiety presenting with sudden onset nausea vomiting diarrhea. Initially was mildly hypotensive and tachycardic which has now resolved. She is overall feeling very anxious. Her abdomen is soft nontender nondistended. She no longer has any sort of vomiting feeling better after Zofran. Blood work has been reviewed WBC 17.7, hemoglobin 13.8, hematocrit 41.2, platelets 302, sodium 138, potassium 3.7, chloride 105, carbon dioxide 21, BUN 20, creatinine 0.9, glucose 171, bilirubin 1.0, AST 21, ALT 20, alk-phos 90 Patient is a overall feeling better feeling silly for coming to the ER. She is tolerating swollen p.o. fluids at this time she was given hydroxyzine for anxiety she did not want anything stronger. I suspect that she does have some sort of gastroenteritis with simultaneous diarrhea and vomiting. Has been ate the same pizza and is not sick. At this time I see no need for any sort of imaging. Discussed oral rehydration techniques with her and when to return to ED. All questions have been addressed. Discharge Plan Departure Patient Disposition: Home Clinical Impression: Gastroenteritis Instructions: DI for Viral Gastroenteritis -- Adult Activity Restrictions/Additional Instructions: 1) You have been diagnosed with gastroenteritis 2) What to do: Drink frequent but small amounts of fluids. I recommend Gatorade or a Gatorade-like product, as it has small amounts of sugar and salts that improve fluid retention. 3) Take medications as directed Zofran 4 mg every 8 hours for nausea or vomiting 4) Follow up with your primary care provider in 2-3 days 5) Return to ER if you should have any new or worsening symptoms such as, unable to hold down fluids despite use of anti-nausea medications and the small volume oral rehydration strategy. Prescriptions: New ondansetron 4 mg tablet,disintegrating 4 mg PO Q8H PRN (Reason: nausea and vomiting) Qty: 10 0RF No Action multivitamin Tablet 1 tab PO DAILY Qty: 0 citalopram [Celexa] 10 mg tablet 5 mg PO DAILY Qty: 15 1RF Rx Instructions: Take 1/2 tablet daily lorazepam 0.5 mg tablet 0.25 mg PO DAILY PRN (Reason: anxiety) Qty: 10 0RF acetaminophen [Tylenol Extra Strength] 500 mg Tablet 500 mg PO PRN PRN (Reason: PAIN) cholecalciferol (vitamin D3) [Vitamin D3] 2,000 unit Tablet 2,000 unit PO DAILY Referrals: Luis Salgado MD [Primary Care Provider] - Stand Alone Forms: Patient Portal/API
[2024-01-18] MEDS: ONDANSETRON 4 MG/2 ML INJ IV (01:42)
[2024-01-18] MEDS: SODIUM CHLORIDE 0.9% 1,000 ML 1000 ML IV (01:47)
[2024-01-18 01:48] VITALS: BP 117/69; PULSE 90; RESP 16; TEMP 36.8; O2SAT 97; BMI 23.0
[2024-01-18 01:54] LABS: Add Manual Diff / Slide Review NO; Basophils Absolute Auto 100 /uL (0-100); Basophils Percent Auto 0.3 % (0-2); Eosinophils Absolute Auto 200 /uL (0-450); Eosinophils Percent Auto 0.9 % (2-4); Hematocrit 41.2 % (36-46); Hemoglobin 13.8 g/dL (12.0-16.0); Lymphocytes Absolute Auto 2300 /uL (1100-4500); Lymphocytes Percent Auto 13.3 % (25-40); Mean Corpuscular HGB Conc 33.4 % (30-36); Mean Corpuscular Hemoglobin 30.6 PG (26-34); Mean Corpuscular Volume 91.5 fL (80-100); Monocytes Absolute Auto 1400 /uL (0-900); Monocytes Percent Auto 7.9 % (3-14); Neutrophils Absolute Auto 13700 /uL (1500-7000); Neutrophils Percent Auto 77.6 % (50-75); Platelet Count 302 X10^3/uL (150-400); Red Blood Cell Count 4.51 X10^6/uL (4.0-5.2); White Blood Cell Count 17.7 X10^3/uL (4.5-11.0)
[2024-01-18 02:08] LABS: Alanine Aminotransferase 20 IU/L (<35); Albumin 4.1 g/dL (3.5-5.0); Albumin Globulin Ratio 1.6 (1.0-2.8); Alkaline Phosphatase 90 U/L (38-126); Aspartate Aminotransferase 21 IU/L (14-36); BUN Creatinine Ratio 21.7 (6-22); Blood Urea Nitrogen 20 mg/dL (7-17); Calcium 9.5 mg/dL (8.4-10.2); Carbon Dioxide 21 mmol/L (22-32); Chloride 105 mmol/L (98-107); Estimated Glomerular Filt Rate > 60 mL/min (>60); Globulin 2.6 g/dL (1.7-4.1); Glucose 171 mg/dL (80-110); HEMOLYSIS < 15 (0-50); Lipase 118 U/L (23-300); Potassium 3.7 mmol/L (3.4-5.1); Sodium 138 mmol/L (137-145); Total Protein 6.7 g/dL (6.3-8.2)
--- NOTE | 2024-01-18 02:10 | PC.NURSE ---
Pt advising that she feels better she threw up and wants to go home. Pt states that she has sent her home to get her slippers and robe so that she can leave. Pt advised to stay until her lab results come back so that she can be properly treated if she has another issue. Pt verbalizes understanding of this explanation but states that she has anxiety about being in hospitals, believes that she has food poisoning and would like to leave. CHRISTINE Pineda advised and at the bedside to speak with the pt.
[2024-01-18] MEDS: hydrOXYzine HCL 25 MG TABLET PO (02:24)
[2024-01-18] MEDS: ONDANSETRON 4 MG ODT PREPACK 1 BOTTLE MISC (02:41)
== END 2024-01-18 02:48 | disposition home or self-care (01) ==
PROVIDERS: Emergency Provider Emergency Medicine; Family Provider Family Medicine; PCP Family Medicine
DX: K52.9 Noninfective gastroenteritis and colitis, unspecified (principal)
CPT/HCPCS: 36415; 80053; 83690; 85025; 96374; 99284; A9270; J2405

== ENCOUNTER → 2024-08-07 10:11 | Outpatient (CLI) | payer OTHER, SELFPAY ==
[2024-08-07 12:04] LABS: Add Manual Diff / Slide Review NO; Basophils Absolute Auto 0 /uL (0-100); Basophils Percent Auto 0.4 % (0-2); Eosinophils Absolute Auto 0 /uL (0-450); Eosinophils Percent Auto 0.6 % (2-4); Hematocrit 40.3 % (36-46); Hemoglobin 13.5 g/dL (12.0-16.0); Lymphocytes Absolute Auto 1700 /uL (1100-4500); Lymphocytes Percent Auto 25.5 % (25-40); Mean Corpuscular HGB Conc 33.6 % (30-36); Mean Corpuscular Hemoglobin 31.1 PG (26-34); Mean Corpuscular Volume 92.5 fL (80-100); Monocytes Absolute Auto 400 /uL (0-900); Neutrophils Absolute Auto 4400 /uL (1500-7000); Neutrophils Percent Auto 67.5 % (50-75); Platelet Count 296 X10^3/uL (150-400); Red Blood Cell Count 4.36 X10^6/uL (4.0-5.2); Red Cell Distribution Width 13.1 % (11.6-14.8); White Blood Cell Count 6.5 X10^3/uL (4.5-11.0)
[2024-08-07 12:20] LABS: Cholesterol 303 mg/dL (140-199); HDL Cholesterol 67 mg/dL (40-60); LDL Cholesterol Calculated 206 mg/dL (<100); Triglycerides 148 mg/dL (35-150)
[2024-08-07 12:22] LABS: Hemoglobin A1C% w Est Avg Glu 5.3 % (4.0-6.0)
== END ==
PROVIDERS: Family Provider Family Medicine; PCP Family Medicine; Referring Provider Family Medicine; Visit Provider Family Medicine
DX: R73.01 Impaired fasting glucose (principal); E78.5 Hyperlipidemia, unspecified
CPT/HCPCS: 36415; 80061; 83036; 85025

== ENCOUNTER 2024-11-15 09:08 | Emergency (ER) | payer OTHER, SELFPAY ==
--- NOTE | 2024-11-15 09:30 | DI.RAD.S_ITS ---
PROCEDURE: XR LUMBAR SPINE 2-3V INDICATIONS: fall TECHNIQUE: 3 views of the lumbar spine were acquired. COMPARISON: [facility], CR, XR THORACIC SPINE 2V, 11/15/2024, 9:29. [facility], CR, XR CHEST 1V, 10/19/2023, 3:49. FINDINGS: Bones: An acute appearing fracture can be seen involving the superior endplate of T12, with 40% loss of height anteriorly. No additional fractures are seen. No suspicious lytic or blastic lesions are seen. The disc heights are well preserved. Multiple levels of facet hypertrophy can be seen inferiorly. Soft tissues: Overlying bowel gas pattern is normal. No suspicious soft tissue calcifications. IMPRESSION: Acute appearing T12 fracture. If it would be helpful for clinical management decision making in this patient, please consider a dedicated follow-up CT. Degenerative changes are seen, with lower lumbar spine facet arthropathy. Dictated by: Bala Orantes M.D. on 11/15/2024 at 9:28 Approved by: Bala Orantes M.D. on 11/15/2024 at 9:29
--- NOTE | 2024-11-15 09:30 | DI.RAD.S_ITS ---
PROCEDURE: XR THORACIC SPINE 2V INDICATIONS: fall TECHNIQUE: 3 views of the thoracic spine were acquired. COMPARISON: [facility], CR, XR LUMBAR SPINE 2-3V, 11/15/2024, 9:29. Correlation is made with chest radiograph, 10/19/2023. FINDINGS: Bones: At T7, there is anterior wedge deformity seen, with 20-25% loss of height anteriorly. This fracture appears chronic. At T12, there is an anterior wedge deformity seen involving the superior endplate with 40% loss of height anteriorly. This fracture demonstrates an acute to subacute appearance. Accentuated thoracic kyphosis is seen. Age-appropriate bony degenerative changes are seen. Soft tissues: No paravertebral stripe thickening. IMPRESSION: T12 fracture, which is suspicious for an acute fracture. This fracture is not seen on the chest radiograph dated 10/19/2023. If it would be helpful for clinical management decision making in this patient, please consider a dedicated CT for further evaluation. Dictated by: Bala Orantes M.D. on 11/15/2024 at 9:24 Approved by: Bala Orantes M.D. on 11/15/2024 at 9:27
[2024-11-15 09:31] VITALS: BP 106/66; PULSE 108; RESP 16; TEMP 37.3; O2SAT 98; BMI 23.0
[2024-11-15 09:55] VITALS: PULSE 96; O2SAT 93
[2024-11-15 10:00] VITALS: PULSE 82; O2SAT 98
[2024-11-15 10:30] VITALS: PULSE 81; O2SAT 97
--- NOTE | 2024-11-15 10:36 | ED_ITS ---
HPI - Fall General Chief Complaint: Fall Stated Complaint: Fell and hurt her lower back. Time Seen by Provider: 11/15/24 09:56 History of Present Illness HPI Narrative: Patient is a 79-year-old female presenting today with low back pain. Reports that she did take hydroxyzine for her anxiety in the felt like her legs kind of gave out from under her and fell landing on her butt. She did not hit her head no neck pain no loss of consciousness. She did a brief episode of diarrhea but really has no numbness or tingling in her legs. Complaining of low back pain in her lumbar region. 1 tablet of ibuprofen prior to coming in reports the pain is improving Related Data Home Medications Medication Instructions Recorded Confirmed multivitamin 1 tab PO DAILY ##0 05/02/11 09/04/24 cholecalciferol (vitamin D3) 50 2,000 unit PO DAILY 08/18/19 09/04/24 mcg (2,000 unit) tablet (Vitamin D3) Previous Rx's Medication Instructions Recorded hydroxyzine HCl 25 mg tablet 25 mg PO TID PRN anxiety #14 tabs 06/19/24 conjugated estrogens 0.625 mg/gram 0.625 mg vaginal 3XW #30 grams 07/31/24 vaginal cream (Premarin) hydrocodone 5 mg-acetaminophen 325 1 tab PO Q6H PRN pain #10 tabs 11/15/24 mg tablet Allergies Allergy/AdvReac Type Severity Reaction Status Date / Time prochlorperazine Allergy Mild Verified 11/15/24 09:29 [PROCHLORPERAZINE] Patient History Medical History (Updated 11/15/24 @ 10:59 by Tessa Pineda DO) Impaired fasting glucose (01/17/16) Hyperlipidemia (04/02/13) Anxiety Surgical History History of third molar tooth extraction Social History Smoking Status: Never smoker Smoking Status: Never smoker alcohol intake frequency: a few times a month Alcohol type: wine Exam Initial Vital Signs Initial Vital Signs: Vital Signs Temperature 99.2 F 11/15/24 09:31 Pulse Rate 108 H 11/15/24 09:31 Respiratory Rate 16 11/15/24 09:31 Blood Pressure 106/66 11/15/24 09:31 Pulse Oximetry 98 11/15/24 09:31 Oxygen Delivery Method Room Air 11/15/24 09:31 GENERAL: Alert 79-year-old female appears lying left side CARDIOVASCULAR: peripheral pulses in tact, cap refill <2 sec RESPIRATORY: No respiratory distress, speaks in full sentences without difficulty BACK: No vertebral tenderness or step-off appreciated no evidence of trauma or contusion. She really does not have any sort of thoracic pain. She does have some lower lumbar bilateral paraspinal pain. Sensation in lower extremities intact and equal EXTREMITIES: Normal range of motion, no clubbing or edema. Neurovascularly intact NEUROLOGICAL: Cranial nerves II through XII grossly intact. Normal gait and speech. SKIN: Warm, dry, no petechiae, no rashes or lesions. Course Orders Ordered: ED Orders 11/15/24 09:30 XR lumbar spine 2-3V Stat XR thoracic spine 2V Stat Vital Signs Vital signs: Vital Signs - 8 hr 11/15/24 09:31 11/15/24 09:55 11/15/24 10:00 Temperature 99.2 F Pulse Rate 108 H 96 H 82 Respiratory Rate 16 Blood Pressure 106/66 Pulse Oximetry 98 93 98 Oxygen Delivery Method Room Air 11/15/24 10:30 11/15/24 11:00 11/15/24 11:11 Temperature Pulse Rate 81 84 77 Respiratory Rate 16 Blood Pressure 110/75 Pulse Oximetry 97 96 97 Oxygen Delivery Method Room Air MDM - Fall Imaging Data Extremity x-ray #1: Radiologist's Impression: PROCEDURE: XR LUMBAR SPINE 2-3V INDICATIONS: fall TECHNIQUE: 3 views of the lumbar spine were acquired. COMPARISON: [facility], CR, XR THORACIC SPINE 2V, 11/15/2024, 9:29. [facility], CR, XR CHEST 1V, 10/19/2023, 3:49. FINDINGS: Bones: An acute appearing fracture can be seen involving the superior endplate of T12, with 40% loss of height anteriorly. No additional fractures are seen. No suspicious lytic or blastic lesions are seen. The disc heights are well preserved. Multiple levels of facet hypertrophy can be seen inferiorly. Soft tissues: Overlying bowel gas pattern is normal. No suspicious soft tissue calcifications. IMPRESSION: Acute appearing T12 fracture. If it would be helpful for clinical management decision making in this patient, please consider a dedicated follow-up CT. Degenerative changes are seen, with lower lumbar spine facet arthropathy. Dictated by: Bala Orantes M.D. on 11/15/2024 at 9:28 Extremity x-ray #2: Radiologist's Impression: PROCEDURE: XR THORACIC SPINE 2V INDICATIONS: fall TECHNIQUE: 3 views of the thoracic spine were acquired. COMPARISON: [facility], , XR LUMBAR SPINE 2-3V, 11/15/2024, 9:29. Correlation is made with chest radiograph, 10/19/2023. FINDINGS: Bones: At T7, there is anterior wedge deformity seen, with 20-25% loss of height anteriorly. This fracture appears chronic. At T12, there is an anterior wedge deformity seen involving the superior endplate with 40% loss of height anteriorly. This fracture demonstrates an acute to subacute appearance. Accentuated thoracic kyphosis is seen. Age-appropriate bony degenerative changes are seen. Soft tissues: No paravertebral stripe thickening. IMPRESSION: T12 fracture, which is suspicious for an acute fracture. This fracture is not seen on the chest radiograph dated 10/19/2023. If it would be helpful for clinical management decision making in this patient, please consider a dedicated CT for further evaluation. Dictated by: Bala Orantes M.D. on 11/15/2024 at 9:24 MDM Narrative Medical decision making narrative: Patient is 70-year-old female who presents today after ground level fall. She was tender in her lower lumbar area. X-ray does suggest T12 acute fracture. However on exam she was really not tender at all. She does not have any significant leg weakness. No have signs or symptoms of cauda equina.. She repo rts pain improvement with Motrin that she took a home. However she did tried stent up it was still feeling pain all across her lower lumbar area. I do not feel T12 is an acute fracture based on exam Discharge Plan Departure Patient Disposition: Home Clinical Impression: Low back pain, Closed wedge compression fracture of T12 vertebra Instructions: DI for Low Back Pain Activity Restrictions/Additional Instructions: *You have been diagnosed with low back pain *What to do: X-ray today does show questionable T12 fracture unclear if this is old or new however you are not tender in this area Increase activity as tolerated recommend heat or ice *Continue to take medications as directed Motrin 400 mg every 6 hours for qldb-go-[id number] pain Tylenol 650 mg every 4-6 hours for otsz-ee-jjwfutby [place] 1 tablet or half a tablet every 6 hours only if needed for severe pain or at night before sleeping *Follow up with your primary care provider in 2-3 days or call [phone] *Return to ER if you should have increasing pain leg weakness falling loss of urine or any new, worsening or concerning symptoms CONTROLLED SUBSTANCE DISCHARGE (Narcotoic/benzodiazepine/Flexeril/Phenergan) 1. You have been prescribed narcotic medications, it does have acetaminophen/Tylenol/paracetamol in it, DO NOT TAKE MORE THAN 4,00mg in 24 hours of Tylenol. TRAMADOL DOES NOT CONTAIN TYLENOL 2. Please understand that we cannot provide further refills of narcotics, benzodiazepines or controlled substances through the ED and her pain management will need to be through your provider. 3. While on these medications you cannot drive or operate heavy machinery. 4. You cannot sign legal documents or perform any duties such as this. 5. As long as you're taking opiate pain medications he should also be taking a stool softener such as Colace, Dulcolax, MiraLAX or prune juice, to help avoid constipation. Prescriptions: New hydrocodone-acetaminophen 5-325 mg tablet 1 tab PO Q6H PRN (Reason: pain) Qty: 10 0RF No Action multivitamin Tablet 1 tab PO DAILY Qty: 0 hydroxyzine HCl 25 mg tablet 25 mg PO TID PRN (Reason: anxiety) Qty: 14 1RF Rx Instructions: Take one tablet every 8 hours as needed for anxiety Premarin 0.625 mg/gram cream 0.625 mg vaginal 3XW Qty: 30 0RF cholecalciferol (vitamin D3) [Vitamin D3] 2,000 unit Tablet 2,000 unit PO DAILY Referrals: Luis Salgado MD [Primary Care Provider] - Stand Alone Forms: Patient Portal/API/Survey
[2024-11-15 11:00] VITALS: PULSE 84; O2SAT 96
[2024-11-15 11:11] VITALS: BP 110/75; PULSE 77; RESP 16; O2SAT 97
== END 2024-11-15 11:11 | disposition home or self-care (01) ==
PROVIDERS: Emergency Provider Emergency Medicine; Family Provider Family Medicine; PCP Family Medicine
DX: M54.50 Low back pain, unspecified (principal); M48.54XA Collapsed vertebra, not elsewhere classified, thoracic region, initial encounter for fracture
CPT/HCPCS: 72070; 72100; 99283

== ENCOUNTER 2024-11-17 07:30 | Emergency (ER) | payer OTHER, SELFPAY ==
[2024-11-17 08:12] VITALS: BP 107/57; PULSE 87; RESP 15; TEMP 37.1; O2SAT 97; BMI 23.0
--- NOTE | 2024-11-17 09:46 | ED.FALL ---
HPI - Fall General Chief Complaint: Fall Stated Complaint: fall, lower L abd pain, weak Time Seen by Provider: 11/17/24 09:42 Source: patient, family, RN notes reviewed and old records reviewed Mode of arrival: Ambulatory Limitations: no limitations History of Present Illness HPI Narrative: 79-year-old female presents with complaint of multiple falls, patient was seen on 11/15/2024 found to have compression fracture of T12. Patient is usually quite active he has had several falls since. Patient has been on norco since her fall which her daughter states maybe contributing and they stopped that today. No fevers or chills. She does not believe she was hit her head at any point. No neck pain, patient has some left rib pain for most recent fall Sunday evening while in the shower. No shortness of breath. No midline back pain. No nausea or vomiting. No other GI or urinary symptoms. No numbness tingling or weakness otherwise. Patient takes hydroxyzine as needed for anxiety but they state no other daily medications. Has a reported allergy to prochlorperazine. No tobacco, occasional alcohol, no recreational drugs. She was accompanied by her daughter as well as her . Related Data Home Medications Medication Instructions Recorded Confirmed multivitamin 1 tab PO DAILY ##0 05/02/11 09/04/24 cholecalciferol (vitamin D3) 50 2,000 unit PO DAILY 08/18/19 09/04/24 mcg (2,000 unit) tablet (Vitamin D3) Previous Rx's Medication Instructions Recorded hydroxyzine HCl 25 mg tablet 25 mg PO TID PRN anxiety #14 tabs 06/19/24 conjugated estrogens 0.625 mg/gram 0.625 mg vaginal 3XW #30 grams 07/31/24 vaginal cream (Premarin) hydrocodone 5 mg-acetaminophen 325 1 tab PO Q6H PRN pain #10 tabs 11/15/24 mg tablet Allergies Allergy/AdvReac Type Severity Reaction Status Date / Time prochlorperazine Allergy Mild Verified 11/15/24 09:29 [PROCHLORPERAZINE] Review of Systems Review of Systems ROS Unobtainable: All systems reviewed & are unremarkable except as noted in HPI and below Patient History Medical History (Updated 11/17/24 @ 12:11 by Lizette Grimaldo DO) Impaired fasting glucose (04/25/16) Hyperlipidemia (04/02/13) Anxiety Surgical History History of third molar tooth extraction Social History Smoking Status: Never smoker Smoking Status: Never smoker alcohol intake frequency: a few times a month Alcohol type: wine Exam Narrative Exam Narrative: GEN: Patient appears in mild distress. HEAD: No evidence of trauma, no raccoon/Pena sign. NECK: Nontender, painless range of motion, trachea midline Negative for Nexus criteria, no midline line tenderness, distracting injury, altered mental status, neuro deficit, recent EtOH. EYES: PERRLA, EOMI ENT: External inspection normal, trachea is midline, TM's are normal no hemotypanum, Nares are clear, no septal hematoma, no dental or oral injury, airway is normal and with normal occlusion, No bony tenderness RESP: Chest is tender over the left lateral ribs, no ecchymosis or skin changes and has symmetric movement, no ecchymosis, breath sounds are normal no crackles, wheezes or rales CVS: Heart sounds are normal, no murmur noted, No JVD. ABG/GI: Nontender, soft, normal bowel sounds, no distention, no organomegaly, pelvic rock is negative NEURO: Oriented AOx3, neuro is grossly intact, sensation and motor is normal all 4 extremities moving, cranial nerves II through XII are intact, GCS is 15 PSYCH: Normal mood and affect SKIN: Intact, warm and dry, no crepitus and without decubitus BACK: No CVA tenderness, no vertebral tenderness, no step-off's, no crepitus EXT: Atraumatic, hips are nontender, no pedal edema, normal color and temperature, normal range of motion of extremities with normal tendon exam, 2+ pulses in all four extremities Initial Vital Signs Initial Vital Signs: Vital Signs Temperature 98.7 F 11/17/24 08:12 Pulse Rate 87 11/17/24 08:12 Respiratory Rate 15 11/17/24 08:12 Blood Pressure 107/57 L 11/17/24 08:12 Pulse Oximetry 97 11/17/24 08:12 Oxygen Delivery Method Room Air 11/17/24 08:12 Course Orders Ordered: ED Orders 11/17/24 10:43 CT head/brain wo con Stat XR ribs LT min 3V w CXR1V Stat 11/17/24 11:14 CBC Auto Diff [Complete Blood Count AUTO DIFF] Stat CMP [Comprehensive Metabolic Panel] Stat PTT Partial Thromboplastin Gerardo Stat Prothrombin Time INR Stat 11/17/24 11:20 UA Complete [Urinalysis and Microscopic] Stat Urine Culture Stat Vital Signs Vital signs: Vital Signs - 8 hr 11/17/24 12:22 Temperature 97.6 F Pulse Rate 85 Respiratory Rate 20 Blood Pressure 110/60 Pulse Oximetry 100 Oxygen Delivery Method Room Air MDM - Fall Lab Data 11/17/24 11:14 11/17/24 11:14 Labs: Lab Results 11/17/24 11/17/24 Range/Units 11:14 11:20 WBC 9.2 (4.5-11.0) X10^3/uL RBC 4.47 (4.0-5.2) X10^6/uL Hgb 14.1 (12.0-16.0) g/dL Hct 41.1 (36-46) % MCV 92.0 (80-100) fL MCH 31.5 (26-34) PG MCHC 34.3 (30-36) % RDW 13.6 (11.6-14.8) % Plt Count 250 (150-400) X10^3/uL Neut % (Auto) 79.7 H (50-75) % Lymph % (Auto) 11.9 L (25-40) % [place] % (Auto) 6.6 (3-14) % Eos % (Auto) 1.2 L (2-4) % Baso % (Auto) 0.6 (0-2) % Neut # (Auto) 7300 H (6516-7045) /uL Lymph # (Auto) 1100 (1190-5620) /uL [place] # (Auto) 600 (0-900) /uL Eos # (Auto) 100 (0-450) /uL Baso # (Auto) 100 (0-100) /uL PT 10.2 (9.4-12.5) SECONDS INR 0.9 (0.9-1.3) APTT 21 L (25.1-36.5) SECONDS Sodium 132 L (137-145) mmol/L Potassium 4.4 (3.4-5.1) mmol/L Chloride 98 (98-107) mmol/L Carbon Dioxide 25 (22-32) mmol/L BUN 22 H (7-17) mg/dL Creatinine 1.02 (0.52-1.04) mg/dL Estimated GFR 56 L (>60) mL/min BUN/Creatinine Ratio 21.6 (6-22) Glucose 102 (80-110) mg/dL Calcium 9.2 (8.4-10.2) mg/dL Total Bilirubin 1.5 H (0.2-1.3) mg/dL AST 33 (14-36) IU/L ALT 30 (<35) IU/L Alkaline Phosphatase 64 (38-126) U/L Total Protein 7.3 (6.3-8.2) g/dL Albumin 4.3 (3.5-5.0) g/dL Globulin 3.0 (1.7-4.1) g/dL Albumin/Globulin Ratio 1.4 (1.0-2.8) Urine Color Yellow Urine Appearance Clear Urine pH 5.5 (4.5-8.0) Ur Specific [place] 1.020 (1.000-1.035) Urine Protein Negative (Negative) Urine Glucose (UA) Negative (Negative) g/dL Urine Ketones 2+ H (NEGATIVE) Urine Occult Blood 2+ H (Negative) Urine Nitrate Negative (Negative) Urine Bilirubin Negative (NEGATIVE) Urine Urobilinogen 0.2 (0.2) E.U./dL Ur Leukocyte Esterase Negative (NEGATIVE) Urine RBC 10-30/hpf H (0-5/HPF) Urine WBC 1-5/hpf (0-5/HPF) Ur Squamous Epith Cells 10-30 /hpf H D (0-5/HPF) Urine Bacteria Occasional (0-1) (None) Ur Culture Indicated? Cult not indicated Vol Urine Centrifuged 10ml (spun) MDM Narrative Medical decision making narrative: 79-year-old female who has had several falls in the last several days, does have a known T12 compression fracture most recently from the . Patient has been taking [place] which daughter notes did make her quite altered and may have been contributing to additional falls. We will obtain head CT as well as lab work to evaluate for other sources although patient notes no head injuries. Head CT shows no acute intracranial pathology no gross croup skull fracture age-related volume loss and mild white matter Chest x-ray/rib no displaced rib fracture or pneumothorax. Labs CBC overall appears appropriate, INR is normal, sodium is 132, BUN 22 creatinine is 1.02 bilirubin is 1.5 otherwise normal LFTs. Urine UA shows 2+ blood, 10-30 RBCs, negative leuks 1-5 white cells 2-3 squamous occasional bacteria. Patient's workup shows no significant changes urine shows possible infection patient has not had any symptoms we will await for culture. Was ordered. Discharge Plan Departure Patient Disposition: Home Clinical Impression: Contusion of rib on left side, Fall, Hematuria Instructions: DI for Rib Fracture Activity Restrictions/Additional Instructions: Please follow up for recheck if symptoms are continuing. Your x-ray did not show any obvious rib fracture but you do have tenderness over that area. You did not have little bit of blood in your urine, please follow up with your physician to make sure that this resolves on rechecked. Did send it for urine culture this takes 48-72 hours to result if this is positive you would be contacted to start an antibiotic. Please return for new or worsening symptoms, worsening chest pain, shortness of breath, lightheadedness or passing out, new weakness, numbness or tingling, persistent vomiting or other new or concerning changes. Prescriptions: No Action multivitamin Tablet 1 tab PO DAILY Qty: 0 hydroxyzine HCl 25 mg tablet 25 mg PO TID PRN (Reason: anxiety) Qty: 14 1RF Rx Instructions: Take one tablet every 8 hours as needed for anxiety Premarin 0.625 mg/gram cream 0.625 mg vaginal 3XW Qty: 30 0RF cholecalciferol (vitamin D3) [Vitamin D3] 2,000 unit Tablet 2,000 unit PO DAILY hydrocodone-acetaminophen 5-325 mg tablet 1 tab PO Q6H PRN (Reason: pain) Qty: 10 0RF Referrals: Luis Salgado MD [Primary Care Provider] - Stand Alone Forms: Patient Portal/API/Survey
--- NOTE | 2024-11-17 10:43 | DI.RAD.S_ITS ---
PROCEDURE: XR RIBS LT MIN 3V W CXR1V INDICATIONS: l rib pain, s/p fall TECHNIQUE: 2 views of the ribs were acquired, along with a single view chest. COMPARISON: None. FINDINGS: Surgical changes and devices: None. Bones and chest wall: No fractures or dislocations. No suspicious bony lesions. Overlying soft tissues appear unremarkable. Lungs and pleura: No pleural effusions or pneumothorax. Lungs appear clear. Mediastinum: Mediastinal contours appear normal. Heart size is normal. IMPRESSION: No displaced rib fractures or pneumothorax. Dictated by: Aj Hager M.D. on 11/17/2024 at 11:32 Approved by: Aj Hager M.D. on 11/17/2024 at 11:33
--- NOTE | 2024-11-17 10:43 | DI.CT.S_ITS ---
PROCEDURE: CT HEAD/BRAIN WO CON INDICATIONS: multiple falls, L rib pain TECHNIQUE: Noncontrast 4.5 mm thick angled axial sections acquired from the foramen magnum to the vertex, with coronal and sagittal reformats. For radiation dose reduction, the following was used: automated exposure control, adjustment of mA and/or kV according to patient size. COMPARISON: None. FINDINGS: Image quality: Diagnostic. CSF spaces: Basal cisterns are patent. No extra-axial fluid collections. The ventricles are symmetric in size and shape. Brain: No intracranial bleeds or masses. There is cerebral volume loss for age, with resultant ventricular and sulcal prominence. There are periventricular and deep white matter chronic small vessel ischemic changes. There is intracranial internal carotid artery atherosclerosis. Skull and face: Calvarium and visualized facial bones appear intact, without suspicious lesions. Sinuses: Visualized sinuses and mastoids are clear. IMPRESSION: 1. No acute intracranial pathology. No gross acute skull fracture. 2. Age related volume loss and mild white matter small vessel chronic ischemic changes. Dictated by: Aj Hager M.D. on 11/17/2024 at 11:33 Approved by: Aj Hager M.D. on 11/17/2024 at 11:33
[2024-11-17 11:22] LABS: Add Manual Diff / Slide Review NO; Basophils Absolute Auto 100 /uL (0-100); Basophils Percent Auto 0.6 % (0-2); Eosinophils Absolute Auto 100 /uL (0-450); Eosinophils Percent Auto 1.2 % (2-4); Hematocrit 41.1 % (36-46); Hemoglobin 14.1 g/dL (12.0-16.0); Lymphocytes Absolute Auto 1100 /uL (1100-4500); Lymphocytes Percent Auto 11.9 % (25-40); Mean Corpuscular HGB Conc 34.3 % (30-36); Mean Corpuscular Hemoglobin 31.5 PG (26-34); Monocytes Absolute Auto 600 /uL (0-900); Monocytes Percent Auto 6.6 % (3-14); Neutrophils Absolute Auto 7300 /uL (1500-7000); Neutrophils Percent Auto 79.7 % (50-75); Platelet Count 250 X10^3/uL (150-400); Red Blood Cell Count 4.47 X10^6/uL (4.0-5.2); Red Cell Distribution Width 13.6 % (11.6-14.8); White Blood Cell Count 9.2 X10^3/uL (4.5-11.0)
[2024-11-17 11:34] LABS: INR 0.9 (0.9-1.3); Prothrombin Time 10.2 SECONDS (9.4-12.5)
[2024-11-17 11:37] LABS: PTT Partial Thromboplastin Tim 21 SECONDS (25.1-36.5)
[2024-11-17 11:37] LABS: Appearance Urine UA CLEAR; Bilirubin Urine UA NEGATIVE (NEGATIVE); Color Urine UA YELLOW; Glucose Urine UA NEGATIVE (Negative); Ketones Urine UA 2+ (NEGATIVE); Leukocyte Esterase Urine UA NEGATIVE (NEGATIVE); Nitrite Urine UA NEGATIVE (Negative); Occult Blood Urine UA 2+ (Negative); Protein Urine UA NEGATIVE (Negative); Urobilinogen Urine UA 0.2 E.U./dL (0.2)
[2024-11-17 11:39] LABS: pH Urine UA 5.5 (4.5-8.0)
[2024-11-17 11:41] LABS: Alanine Aminotransferase 30 IU/L (<35); Albumin 4.3 g/dL (3.5-5.0); Albumin Globulin Ratio 1.4 (1.0-2.8); Alkaline Phosphatase 64 U/L (38-126); Aspartate Aminotransferase 33 IU/L (14-36); BUN Creatinine Ratio 21.6 (6-22); Bilirubin Total 1.5 mg/dL (0.2-1.3); Blood Urea Nitrogen 22 mg/dL (7-17); Calcium 9.2 mg/dL (8.4-10.2); Carbon Dioxide 25 mmol/L (22-32); Chloride 98 mmol/L (98-107); Estimated Glomerular Filt Rate 56 mL/min (>60); Glucose 102 mg/dL (80-110); Potassium 4.4 mmol/L (3.4-5.1); Sodium 132 mmol/L (137-145); Total Protein 7.3 g/dL (6.3-8.2)
[2024-11-17 11:47] LABS: Bacteria Urine Occasional (0-1); Culture Indicated Urine Cult Not Indicated; RBC Urine 10-30/HPF (0-5/HPF); Squamous Epithelial Cell Urine 10-30 /HPF (0-5/HPF); Urine Volume 10mL (spun); WBC Urine 1-5/HPF (0-5/HPF)
[2024-11-17 11:48] LABS: HEMOLYSIS 74 (0-50)
[2024-11-17 12:22] VITALS: BP 110/60; PULSE 85; RESP 20; TEMP 36.4; O2SAT 100
--- NOTE | 2024-11-19 06:50 | PC.NURSE ---
Pt called today to clarify information. Per Dr. Burton: Pt called with concerns about UTI. After review from Dr. Burton. See below response. Reviewed chart, patient's urinalysis not consistent with UTI. Ther is no other interventions we can provide for her pain in the ER for her known T12 compression fracture given patient's documented mental status changes on narcotic medications. Unless patient is having numbness/weakness to lower extremities no further imaging indicated. Do not take Aleve and Ibuprofen at the same time. You need to pick on or the other. If Aleve 250 mg then you may take 2 tablets (500 mg) twice a day 8-12 hours apart. No more than 1000 mg in a 24 hour period. If Ibuprofen 200 mg you may take 3 tablets (600 mg) four times a day 4-6 hours apart. No more than 2400 mg in 24 hour period. Narcotic pain medication contains Acetaminophen (Tylenol) 325 mg per tablet. Total daily dose of Acetaminophen (Tylenol) in a 24 hour period is 3000 mg - 4000 mg. If you are not taking the [place] (Hydrocodone with Acetaminophen 5 mg / 325 mg) then you can take tylenol as follows. Acetaminophen (Tylenol) 500 mg tablet take 2 tablets three or four times a day 6-8 hours apart. If you plan to take [place] (Hydrocodone with Acetaminophen 5 mg / 325 mg) at bedtime to help with restful sleep you can take an additional Acetaminophen (Tylenol) 500 mg tablet take 1 tablet with 1 tablet of [place] (Hydrocodone with Acetaminophen 5 mg / 325 mg) Total Acetaminophen (Tylenol) dosing will be 875 mg. You may Ice or heat low back for 20 minutes. Then no ice or heat for 1 hour. This may be done as many times a day that you are awake.
== END 2024-11-17 12:23 | disposition home or self-care (01) ==
PROVIDERS: Emergency Provider Emergency Medicine; Family Provider Family Medicine; PCP Family Medicine
DX: S20.212A Contusion of left front wall of thorax, initial encounter (principal); R10.32 Left lower quadrant pain; W18.30XA Fall on same level, unspecified, initial encounter; W18.2XXA Fall in (into) shower or empty bathtub, initial encounter; R31.9 Hematuria, unspecified; R29.6 Repeated falls; S09.90XA Unspecified injury of head, initial encounter
CPT/HCPCS: 36415; 70450; 71101; 80053; 81001; 85025; 85610; 85730; 87086; 99283; 99284

== ENCOUNTER → 2025-01-14 11:32 | Outpatient (CLI) | payer OTHER, SELFPAY ==
--- NOTE | 2025-01-14 11:35 | DI.RAD.S_ITS ---
PROCEDURE: XR DEXA AXIAL SKELETON INDICATIONS: eval for osteoporosis COMPARISON: None. FINDINGS: Lumbar Spine: Bone mineral density 0.702 g/cm2, T score -3.1. Left Femoral Neck: Bone mineral density 0.554 g/cm2, T score -2.7. Left Hip: Bone mineral density 0.704 g/cm2, T score -1.9. Fracture Risk Calculation (when applicable): 10-year fracture risk of a major osteoporotic fracture 18 percent and of a hip fracture 6.4 percent. (T score greater or equal to -1.0 to: NORMAL) (T score from -1.1 to -2.4: OSTEOPENIA) (T score less than or equal to -2.5: OSTEOPOROSIS) IMPRESSION: Osteoporosis--- recommend repeat DEXA in 2 years or less for reassessment of response to treatment. Follow-up guidelines as follows: Osteoporosis: Consider a repeat DEXA and Vertebral Fracture Assessment (VFA) exam in 2 years or sooner if medically necessary, to reassess this patient's status. Osteopenia: Consider a repeat DEXA in 2-3 years to reassess this patient's status, or if there is a new clinical indication. Normal: Consider a repeat DEXA in 5 years or sooner, or if there is a new clinical indication. All treatment decisions require clinical judgment and consideration of individual patient factors, including patient preferences, comorbidities, previous drug use, risk factors not captured in the FRAX model (e.g., frailty, falls, vitamin D deficiency, increased bone turnover, interval significant decline in bone density ) and possible under- or over-estimation of fracture risk by FRAX. In addition, the NOF Guide recommends that FDA-approved medical therapies be considered in postmenopausal women and men age >= 50 years with a: * Hip or vertebral (clinical or morphometric) fracture * T-score of <=-2.5 at the spine or hip * Ten-year fracture probability by FRAX of >= 3% for hip fracture or >=20% for major osteoporotic fracture. Dictated by: Rome Gilliland M.D. on 01/14/2025 at 19:17 Approved by: Rome Gilliland M.D. on 01/14/2025 at 19:23
--- NOTE | 2025-01-14 11:35 | DI.CT.S_ITS ---
PROCEDURE: CT THORACIC SPINE WO CON INDICATIONS: Fracture T12 after fall in Feb - persistent pain TECHNIQUE: Noncontrast 3 mm thick sections acquired through the region of interest in the thoracic spine. Sagittal and coronal reformats were then constructed. For radiation dose reduction, the following was used: automated exposure control. COMPARISON: [facility], CR, XR THORACIC SPINE 2V, 11/15/2024, 9:29. [facility], CT, CT LUMBAR SPINE WO CON, 01/14/2025, 11:42. FINDINGS: Image quality: Excellent. Bones: At the T12 level, there is a significant burst type fracture seen, with 80% loss of height centrally. There is posterior displacement of fracture fragments of 6 mm seen, as on series 5, image 27. There is associated moderate to severe central canal narrowing at this level, as on series 2, image 80. This fracture is clearly progressed compared to the 11/15/2024 plain film. There is a T7 level fracture seen, with 40% loss of height anteriorly, which is similar to the prior plain film. Accentuated thoracic kyphosis is seen. No focal AP alignment abnormality is seen. Generalized degenerative changes and osteopenia can be seen. Soft tissues: No paravertebral masses or hematomas. Visualized posteromedial lungs appear clear. IMPRESSION: Clear interval progression of a burst type fracture of T12 level, now with 80% loss of height centrally. There is 6 mm posterior displacement fracture fragments, with moderate to severe central canal narrowing. Stable T7 compression deformity, which is regarded to be remote. Dictated by: Bala Orantes M.D. on 01/17/2025 at 11:30 Approved by: Bala Orantes M.D. on 01/17/2025 at 11:33
--- NOTE | 2025-01-14 11:35 | DI.CT.S_ITS ---
PROCEDURE: CT LUMBAR SPINE WO CON INDICATIONS: Fracture T12 after fall in Feb TECHNIQUE: Noncontrast 3 mm thick sections acquired from the T12 level to the sacrum. Sagittal and coronal reformats were constructed. For radiation dose reduction, the following was used: automated exposure control. COMPARISON: [facility], CT, CT THORACIC SPINE WO CON, 01/14/2025, 11:42. [facility], CR, XR LUMBAR SPINE 2-3V, 11/15/2024, 9:29. FINDINGS: Image quality: Excellent. Bones: There is interval progression of the known T12 fracture, now with 80% loss of height centrally. There is 6 mm posterior displacement fracture fragments. No additional acute fracture can be seen. There is normal bony alignment. No suspicious lytic or blastic bony lesions. No pars defects. Posterior to the T12 vertebral body, there is moderate to severe central canal narrowing. T12-L1: No significant abnormality is seen. L1-L2: Normal. L2-L3: No significant abnormality is seen at this level. L3-L4: The disc height is well preserved. Mild generalized disc bulge is seen. Mild facet joint hypertrophy is seen. There is mild right-sided and moderate left-sided neural foraminal narrowing. Minimal central canal narrowing is seen. L4-L5: The disc height is well preserved. Moderate generalized disc bulge is seen. There is a superimposed central disc protrusion. At least moderate facet hypertrophy can be seen. There is moderate right-sided and at least moderate left-sided neural foraminal narrowing. Moderate central canal narrowing is seen. L5-S1: The disc height is well preserved. Mild generalized disc bulge is seen. There is mild right-sided and moderate left-sided facet hypertrophy. There is moderate left-sided and mild right-sided neural foraminal narrowing. Minimal central canal narrowing is seen. Soft tissues: No retroperitoneal masses or hematomas. Visualized aorta is normal in caliber. Atherosclerotic calcification is noted. A likely cyst measuring 16 Hounsfield units can be seen along the posterior aspect of the left kidney, measuring 2.5 cm. IMPRESSION: Progression of the known T12 fracture, now with 80% loss of height centrally. There is 6 mm posterior displacement of fracture fragments, with associated moderate to severe central canal narrowing. Underlying lumbar spine degenerative changes are seen, which are worst at the L4-L5 level. Dictated by: Bala Orantes M.D. on 01/17/2025 at 11:33 Approved by: Bala Orantes M.D. on 01/17/2025 at 11:38
== END ==
PROVIDERS: Family Provider Family Medicine; PCP Family Medicine; Referring Provider Physician Assistant; Visit Provider Physician Assistant
DX: S22.081A Stable burst fracture of T11-T12 vertebra, initial encounter for closed fracture (principal); S22.069S Unspecified fracture of T7-T8 vertebra, sequela; M48.04 Spinal stenosis, thoracic region; M47.816 Spondylosis without myelopathy or radiculopathy, lumbar region; M40.204 Unspecified kyphosis, thoracic region; M81.0 Age-related osteoporosis without current pathological fracture; N95.9 Unspecified menopausal and perimenopausal disorder; M54.9 Dorsalgia, unspecified; M62.838 Other muscle spasm; W19.XXXA Unspecified fall, initial encounter
CPT/HCPCS: 72128; 72131; 77080